=== PATIENT | male | born 1950 | race Two or more races ===

== ENCOUNTER 2017-04-23 02:55 | Inpatient (IN) | payer MEDICAID, MEDICARE ==
[~2017-04-23] VITALS: Ht 172.7 cm; Wt 65.8 kg
[2017-04-23] VITALS (22 sets, daily range): BP systolic 74–122; BP diastolic 44–78
[~2017-04-23 02:55] MED LIST: ASPI-1169 PO; CARV6.252 PO; CLON0.1T14 PO; FURO40TA5 PO; FURO80TA3 PO; ISOS60TA PO; LISI-607 PO; LISI10TA5 PO; MECL-118 PO; NITR0.4T SL; TAMS-12 PO; ZOLP5TAB8 PO
[2017-04-23] MEDS ORDERED: FUROSEMIDE 20 MG/2 ML VIAL ONE (03:07)
[2017-04-23] MEDS ORDERED: FUROSEMIDE 40 MG/4 ML VIAL ONE (03:07)
[2017-04-23] MEDS ORDERED: MORPHINE SULFATE INJ 4 MG/ML DISP.SYRIN ONE (03:08)
[2017-04-23] MEDS ORDERED: ASPIRIN EC 325 MG TABLET.DR PO ONE (03:08)
[2017-04-23] MEDS ORDERED: NITROGLYCERIN PACKET 1 GM PACKET ONE (03:08)
[2017-04-23 03:29] LABS: BASOPHILS % (AUTO) 0.2 % (0.0-2.0); HEMATOCRIT 37 % (39-51); HEMOGLOBIN 11.5 g/dL (13.5-17.5); LYMPHOCYTES # (AUTO) 2.1 /CMM (0.8-4.8); LYMPHOCYTES % (AUTO) 12.8 % (20.0-44.0); MEAN CORPUSCULAR HEMOGLOBIN 23 PG (26.0-33.0); MEAN CORPUSCULAR HGB CONC 31 g/dl (31.0-36.0); MEAN CORPUSCULAR VOLUME 75 fL (80-96); MONOCYTES # (AUTO) 0.2 /CMM (0.1-1.30); MONOCYTES % (AUTO) 1.3 % (2.0-12.0); NEUTROPHILS % (AUTO) 85.7 % (43.0-81.0); PLATELET COUNT (AUTO) 259 /CMM (150-450); RDW COEFFICIENT OF VARIATION 17.5 (11.5-15.0); RED BLOOD CELL COUNT(AUTO) 4.93 MIL/uL (4.5-6.0); WHITE BLOOD COUNT (AUTO) 16.4 K/uL (4.3-11.0)
[2017-04-23] MEDS ORDERED: ONDANSETRON HCL/PF 4 MG/2 ML VIAL ONE (03:29)
[2017-04-23] MEDS ORDERED: MORPHINE SULFATE INJ 2 MG/ML DISP.SYRIN IV ONE (03:30)
[2017-04-23] MEDS ORDERED: ONDANSETRON HCL/PF 4 MG/2 ML VIAL IVP ONE (03:30)
[2017-04-23] MEDS ORDERED: ASPIRIN 325 MG TABLET PO ONE (03:30)
[2017-04-23] MEDS ORDERED: NITROGLYCERIN PACKET 1 GM PACKET TD ONE (03:30)
[2017-04-23] MEDS ORDERED: FUROSEMIDE 40 MG/4 ML VIAL IV ONE (03:30)
[2017-04-23 03:43] LABS: CALCIUM, SERUM 8.2 mg/dL (8.5-10.1); CREATININE 2.5 mg/dL (0.6-1.3); POTASSIUM 4.1 mmol/L (3.5-5.1)
[2017-04-23 03:45] LABS: INR 1.11 (0.87-1.13)
[2017-04-23 03:48] LABS: TROPONIN I 0.175 ng/mL (0.00-0.056)
[2017-04-23 03:48] LABS: ABG BASE EXCESS -5.8 mmol/L; ABG OXYGEN SATURATION 86.2 % (92.0-98.5); ABG PCO2 42.8 mmHg (35.0-45.0); ABG PH 7.297 (7.350-7.450); ABG PO2 59.8 mmHg (75.0-100.0); COHb 0.3 % (0.5-1.5); MetHb 0.5 % (0.0-1.5); O2Hb 85.5 % (94.0-97.0); SITE, ABG Right Radial; VENT MODE, BG NRB
[2017-04-23 03:56] LABS: ALBUMIN 3.4 g/dL (3.4-5.0); BILIRUBIN,DIRECT 0.3 mg/dL (0.0-0.2); BILIRUBIN,TOTAL 1.3 mg/dL (0.2-1.0); TOTAL PROTEIN, SERUM 7.6 g/dL (6.4-8.2)
[2017-04-23] MEDS ORDERED: MAGNESIUM HYDROXIDE 30 ML UDC PO PRN (05:30)
[2017-04-23] MEDS ORDERED: LEVALBUTEROL HCL NEB 1.25 MG/0.5 ML VIAL.NEB NEB SCH (05:30)
[2017-04-23] MEDS ORDERED: HYDROCODONE/APAP 5/325MG 1 EACH TABLET PO PRN (05:30)
[2017-04-23] MEDS ORDERED: MAG HYDROX/AL HYDROX/SIMETH 30 ML UDC PO PRN (05:30)
[2017-04-23] MEDS ORDERED: Z GUARD REMEDY 2 OZ OINT TP PRN (05:30)
[2017-04-23] MEDS ORDERED: ONDANSETRON HCL/PF 4 MG/2 ML VIAL IVP PRN (05:30)
[2017-04-23] MEDS ORDERED: ZOLPIDEM TARTRATE 5 MG TABLET PO PRN (05:30)
[2017-04-23] MEDS ORDERED: hydrALAZINE HCL 25 MG TABLET PO PRN (05:30)
[2017-04-23] MEDS ORDERED: FUROSEMIDE 40 MG/4 ML VIAL IV SCH (06:00)
[2017-04-23 06:18] LABS: TROPONIN I 0.593 ng/mL (0.00-0.056)
[2017-04-23 06:21] LABS: THYROID STIMULATING HORMONE 2.093 uIU/mL (0.358-3.74)
[2017-04-23] MEDS ORDERED: OSELTAMIVIR PHOSPHATE 75 MG CAPSULE PO ONE (09:00)
[2017-04-23] MEDS: ISOSORBIDE MONONITRATE (30MG) 30 MG TAB.SR.24H PO SCH (09:00)
[2017-04-23] MEDS: CLONIDINE HCL 0.1 MG TABLET PO SCH ×2 (09:00→16:50)
[2017-04-23] MEDS: CARVEDILOL 6.25 MG TABLET PO SCH ×2 (09:00→16:51)
[2017-04-23] MEDS: ALBUTEROL FS 2.5 MG/3 ML VIAL.NEB NEB SCH ×4 (09:26→19:03)
[2017-04-23] MEDS ORDERED: NITROGLYCERIN 0.4 MG/TAB BOTTLE SL PRN (09:30)
[2017-04-23] MEDS ORDERED: MECLIZINE HCL 25 MG TABLET PO PRN (09:30)
[2017-04-23] MEDS: PANTOPRAZOLE 40 MG TABLET.DR PO SCH (10:19)
[2017-04-23] MEDS: ASPIRIN 81 MG TAB.CHEW PO SCH (10:19)
[2017-04-23] MEDS: ACETAMINOPHEN 325 MG TABLET PO PRN (10:19)
[2017-04-23] MEDS: AZITHROMYCIN 250 MG TABLET PO SCH (10:19)
[2017-04-23] MEDS: FUROSEMIDE 40 MG/4 ML VIAL IV SCH ×2 (10:20→19:15)
[2017-04-23] MEDS ORDERED: NOREPINEPHRINE 8 MG in IV D5W 500 ML IV PRN (11:30)
[2017-04-23] MEDS: CEFTRIAXONE 1 G in IV D5W 50 ML IV SCH (12:07)
[2017-04-23] MEDS ORDERED: HEPARIN SODIUM, PORCINE 5000 UNITS/1 ML VIAL IV ONE (15:30)
[2017-04-23] MEDS: HEPARIN INFUSION/D5W 500 ML IV PRN (16:04)
[2017-04-23] MEDS: OSELTAMIVIR PHOSPHATE 75 MG CAPSULE PO SCH (17:22)
[2017-04-23] MEDS: TAMSULOSIN 0.4 MG CAP.SR.24H PO SCH (22:39)
[2017-04-24] VITALS (56 sets, daily range): BP systolic 70–144; BP diastolic 41–96
[2017-04-24] MEDS: FUROSEMIDE 40 MG/4 ML VIAL IV SCH ×5 (00:30→23:44)
[2017-04-24] MEDS: HEPARIN INFUSION/D5W 500 ML IV PRN ×2 (00:43→17:53)
[2017-04-24] MEDS: MORPHINE SULFATE INJ 4 MG/ML DISP.SYRIN IV PRN ×2 (00:45→21:54)
[2017-04-24 06:06] LABS: BASOPHILS % (AUTO) 0.4 % (0.0-2.0); EOSINOPHILS % (AUTO) 0.1 % (0.0-6.0); HEMATOCRIT 31 % (39-51); HEMOGLOBIN 10.1 g/dL (13.5-17.5); LYMPHOCYTES # (AUTO) 0.5 /CMM (0.8-4.8); LYMPHOCYTES % (AUTO) 6.6 % (20.0-44.0); MEAN CORPUSCULAR HEMOGLOBIN 24 PG (26.0-33.0); MEAN CORPUSCULAR HGB CONC 33 g/dl (31.0-36.0); MEAN CORPUSCULAR VOLUME 72 fL (80-96); MONOCYTES # (AUTO) 0.3 /CMM (0.1-1.30); MONOCYTES % (AUTO) 3.3 % (2.0-12.0); NEUTROPHILS # (AUTO) 6.9 /CMM (1.8-8.9); NEUTROPHILS % (AUTO) 89.6 % (43.0-81.0); PLATELET COUNT (AUTO) 136 /CMM (150-450); RED BLOOD CELL COUNT(AUTO) 4.25 MIL/uL (4.5-6.0); WHITE BLOOD COUNT (AUTO) 7.7 K/uL (4.3-11.0)
[2017-04-24 06:32] LABS: CALCIUM, SERUM 7.4 mg/dL (8.5-10.1); CREATININE 2.4 mg/dL (0.6-1.3); MAGNESIUM 1.8 mg/dL (1.8-2.4); PHOSPHORUS 3.8 mg/dL (2.5-4.9)
[2017-04-24] MEDS: ALBUTEROL FS 2.5 MG/3 ML VIAL.NEB NEB SCH ×4 (07:52→19:23)
[2017-04-24] MEDS ORDERED: ENOXAPARIN SODIUM 30 MG/0.3 ML DISP.SYRIN SQ SCH (09:00)
[2017-04-24] MEDS: OSELTAMIVIR PHOSPHATE 75 MG CAPSULE PO SCH ×2 (09:05→17:47)
[2017-04-24] MEDS: AZITHROMYCIN 250 MG TABLET PO SCH (09:05)
[2017-04-24] MEDS: POTASSIUM CHLORIDE 20 MEQ TAB.PRT.SR PO SCH ×3 (09:05→11:18)
[2017-04-24] MEDS: ASPIRIN 81 MG TAB.CHEW PO SCH (09:05)
[2017-04-24] MEDS: PANTOPRAZOLE 40 MG TABLET.DR PO SCH (09:05)
[2017-04-24] MEDS: CEFTRIAXONE 1 G in IV D5W 50 ML IV SCH (09:06)
[2017-04-24] MEDS: CARVEDILOL 6.25 MG TABLET PO SCH ×2 (09:11→17:00)
[2017-04-24] MEDS: ISOSORBIDE MONONITRATE (30MG) 30 MG TAB.SR.24H PO SCH (09:11)
[2017-04-24] MEDS: CLONIDINE HCL 0.1 MG TABLET PO SCH ×2 (09:12→17:00)
[2017-04-24 09:34] LABS: LYMPHOCYTES % (MANUAL) 6 % (16-48); MONOCYTES % (MANUAL) 3 % (0-11.0); NEUTROPHILS % (MANUAL) 91 (42-76)
[2017-04-24] MEDS: ACETAMINOPHEN 325 MG TABLET PO PRN (10:20)
[2017-04-24 11:37] LABS: ABG BASE EXCESS 4.3 mmol/L; ABG OXYGEN SATURATION 96.1 % (92.0-98.5); ABG PCO2 42.4 mmHg (35.0-45.0); ABG PH 7.449 (7.350-7.450); ABG PO2 92.3 mmHg (75.0-100.0); AaDO2 144.1 mmHg; COHb 0.3 % (0.5-1.5); MetHb 0.2 % (0.0-1.5); O2Hb 95.6 % (94.0-97.0); SITE, ABG Right Radial; VENT MODE, BG NC 5L
[2017-04-24] MEDS: DOBUTamine 500 MG in IV D5W 210 ML IV PRN (15:11)
[2017-04-24] MEDS: LACTOBACILLUS RHAMNOSUS GG 1 EACH CAP.SPRINK PO SCH (17:47)
[2017-04-24] MEDS: TAMSULOSIN 0.4 MG CAP.SR.24H PO SCH (21:54)
[2017-04-25] VITALS (53 sets, daily range): BP systolic 83–135; BP diastolic 36–97
[2017-04-25 01:43] LABS: CALCIUM, SERUM 7.2 mg/dL (8.5-10.1); CREATININE 2.3 mg/dL (0.6-1.3); POTASSIUM 3.2 mmol/L (3.5-5.1)
[2017-04-25 01:47] LABS: PHOSPHORUS 3.8 mg/dL (2.5-4.9)
[2017-04-25 02:01] LABS: TROPONIN I 0.408 ng/mL (0.00-0.056)
[2017-04-25] MEDS ORDERED: POTASSIUM CHLORIDE 20 MEQ TAB.PRT.SR PO ONE ×2 (03:10→03:30)
[2017-04-25] MEDS: DOBUTamine 500 MG in IV D5W 210 ML IV PRN (04:48)
[2017-04-25 05:23] LABS: EOSINOPHILS % (AUTO) 0.4 % (0.0-6.0); HEMATOCRIT 30 % (39-51); HEMOGLOBIN 9.9 g/dL (13.5-17.5); LYMPHOCYTES # (AUTO) 0.3 /CMM (0.8-4.8); LYMPHOCYTES % (AUTO) 9.2 % (20.0-44.0); MEAN CORPUSCULAR HEMOGLOBIN 24 PG (26.0-33.0); MEAN CORPUSCULAR HGB CONC 33 g/dl (31.0-36.0); MEAN CORPUSCULAR VOLUME 72 fL (80-96); MONOCYTES # (AUTO) 0.3 /CMM (0.1-1.30); NEUTROPHILS # (AUTO) 2.9 /CMM (1.8-8.9); NEUTROPHILS % (AUTO) 82.4 % (43.0-81.0); PLATELET COUNT (AUTO) 147 /CMM (150-450); RDW COEFFICIENT OF VARIATION 17.8 (11.5-15.0); RED BLOOD CELL COUNT(AUTO) 4.17 MIL/uL (4.5-6.0); WHITE BLOOD COUNT (AUTO) 3.5 K/uL (4.3-11.0)
[2017-04-25 05:31] LABS: TROPONIN I 0.387 ng/mL (0.00-0.056)
[2017-04-25 05:38] LABS: ALBUMIN 2.9 g/dL (3.4-5.0); BILIRUBIN,TOTAL 1.1 mg/dL (0.2-1.0); CALCIUM, SERUM 7.7 mg/dL (8.5-10.1); CREATININE 2.2 mg/dL (0.6-1.3); MAGNESIUM 1.9 mg/dL (1.8-2.4); PHOSPHORUS 3.4 mg/dL (2.5-4.9); POTASSIUM 3.5 mmol/L (3.5-5.1); TOTAL PROTEIN, SERUM 6.3 g/dL (6.4-8.2)
[2017-04-25] MEDS: FUROSEMIDE 40 MG/4 ML VIAL IV SCH (06:15)
[2017-04-25] MEDS: ACETAMINOPHEN 325 MG TABLET PO PRN (07:51)
[2017-04-25] MEDS: PANTOPRAZOLE 40 MG TABLET.DR PO SCH (07:52)
[2017-04-25] MEDS: LACTOBACILLUS RHAMNOSUS GG 1 EACH CAP.SPRINK PO SCH ×2 (08:00→16:51)
[2017-04-25] MEDS: ASPIRIN 81 MG TAB.CHEW PO SCH (08:00)
[2017-04-25] MEDS: OSELTAMIVIR PHOSPHATE 75 MG CAPSULE PO SCH ×2 (08:00→16:51)
[2017-04-25] MEDS: ALBUTEROL FS 2.5 MG/3 ML VIAL.NEB NEB SCH ×4 (08:06→19:43)
[2017-04-25] MEDS: CEFTRIAXONE 1 G in IV D5W 50 ML IV SCH (09:22)
[2017-04-25] MEDS: AZITHROMYCIN 250 MG TABLET PO SCH (09:22)
[2017-04-25] MEDS: TAMSULOSIN 0.4 MG CAP.SR.24H PO SCH (21:17)
[2017-04-25] MEDS: MORPHINE SULFATE INJ 4 MG/ML DISP.SYRIN IV PRN (21:18)
[2017-04-25] MEDS: HEPARIN SODIUM, PORCINE 5000 UNITS/1 ML VIAL SQ SCH (21:19)
[2017-04-26] VITALS (18 sets, daily range): BP systolic 106–128; BP diastolic 61–83
[2017-04-26] MEDS: MORPHINE SULFATE INJ 4 MG/ML DISP.SYRIN IV PRN ×2 (01:33→21:07)
[2017-04-26] MEDS: IV NS 0.9% 100 ML IV PRN ×2 (04:21→17:47)
[2017-04-26] MEDS: ALBUTEROL FS 2.5 MG/3 ML VIAL.NEB NEB SCH ×3 (07:12→19:26)
[2017-04-26] MEDS ORDERED: FUROSEMIDE 40 MG/4 ML VIAL IV SCH (08:00)
[2017-04-26] MEDS ORDERED: POTASSIUM CHLORIDE 20 MEQ TAB.PRT.SR PO SCH (08:00)
[2017-04-26] MEDS: LACTOBACILLUS RHAMNOSUS GG 1 EACH CAP.SPRINK PO SCH ×2 (08:52→16:27)
[2017-04-26] MEDS: OSELTAMIVIR PHOSPHATE 75 MG CAPSULE PO SCH ×2 (08:52→16:27)
[2017-04-26] MEDS: PANTOPRAZOLE 40 MG TABLET.DR PO SCH (08:52)
[2017-04-26] MEDS: ASPIRIN 81 MG TAB.CHEW PO SCH (08:52)
[2017-04-26] MEDS: HEPARIN SODIUM, PORCINE 5000 UNITS/1 ML VIAL SQ SCH ×2 (08:55→20:58)
[2017-04-26] MEDS: AZITHROMYCIN 250 MG TABLET PO SCH (09:01)
[2017-04-26] MEDS: CEFTRIAXONE 1 G in IV D5W 50 ML IV SCH (09:05)
[2017-04-26 09:30] LABS: BILIRUBIN,TOTAL 0.7 mg/dL (0.2-1.0); CREATININE 2.1 mg/dL (0.6-1.3); MAGNESIUM 2.1 mg/dL (1.8-2.4); PHOSPHORUS 2.9 mg/dL (2.5-4.9); POTASSIUM 3.4 mmol/L (3.5-5.1); TOTAL PROTEIN, SERUM 6.7 g/dL (6.4-8.2)
[2017-04-26 09:58] LABS: BASOPHILS % (AUTO) 0.5 % (0.0-2.0); EOSINOPHILS % (AUTO) 1.9 % (0.0-6.0); HEMATOCRIT 32 % (39-51); HEMOGLOBIN 10.2 g/dL (13.5-17.5); LYMPHOCYTES # (AUTO) 0.5 /CMM (0.8-4.8); LYMPHOCYTES % (AUTO) 18.6 % (20.0-44.0); MEAN CORPUSCULAR HEMOGLOBIN 23 PG (26.0-33.0); MEAN CORPUSCULAR HGB CONC 32 g/dl (31.0-36.0); MEAN CORPUSCULAR VOLUME 72 fL (80-96); MONOCYTES # (AUTO) 0.4 /CMM (0.1-1.30); MONOCYTES % (AUTO) 16.5 % (2.0-12.0); NEUTROPHILS # (AUTO) 1.5 /CMM (1.8-8.9); NEUTROPHILS % (AUTO) 62.5 % (43.0-81.0); PLATELET COUNT (AUTO) 148 /CMM (150-450); RDW COEFFICIENT OF VARIATION 16.5 (11.5-15.0); RED BLOOD CELL COUNT(AUTO) 4.48 MIL/uL (4.5-6.0); WHITE BLOOD COUNT (AUTO) 2.4 K/uL (4.3-11.0)
[2017-04-26 11:53] LABS: BAND % (MANUAL) 2 % (0.0-5.0); EOSINOPHILS % (MANUAL) 3 % (0-4); LYMPHOCYTES % (MANUAL) 17 % (16-48); MONOCYTES % (MANUAL) 5 % (0-11.0); NEUTROPHILS % (MANUAL) 73 (42-76)
[2017-04-26] MEDS: TAMSULOSIN 0.4 MG CAP.SR.24H PO SCH (20:58)
[2017-04-27] VITALS: BP 132/64
[2017-04-27 01:30] VITALS: BP 132/64
[2017-04-27 04:00] VITALS: BP 124/74
[2017-04-27] MEDS: PANTOPRAZOLE 40 MG TABLET.DR PO SCH (07:05)
[2017-04-27] MEDS: ALBUTEROL FS 2.5 MG/3 ML VIAL.NEB NEB SCH (07:35)
[2017-04-27 07:48] LABS: BASOPHILS % (AUTO) 0.1 % (0.0-2.0); EOSINOPHILS # (AUTO) 0.1 /CMM (0.0-0.7); EOSINOPHILS % (AUTO) 3.3 % (0.0-6.0); HEMATOCRIT 33 % (39-51); HEMOGLOBIN 10.9 g/dL (13.5-17.5); LYMPHOCYTES # (AUTO) 0.7 /CMM (0.8-4.8); LYMPHOCYTES % (AUTO) 21.8 % (20.0-44.0); MEAN CORPUSCULAR HEMOGLOBIN 24 PG (26.0-33.0); MEAN CORPUSCULAR HGB CONC 33 g/dl (31.0-36.0); MEAN CORPUSCULAR VOLUME 72 fL (80-96); MONOCYTES # (AUTO) 0.5 /CMM (0.1-1.30); MONOCYTES % (AUTO) 16.6 % (2.0-12.0); NEUTROPHILS # (AUTO) 1.8 /CMM (1.8-8.9); NEUTROPHILS % (AUTO) 58.2 % (43.0-81.0); PLATELET COUNT (AUTO) 156 /CMM (150-450); RDW COEFFICIENT OF VARIATION 17.4 (11.5-15.0); RED BLOOD CELL COUNT(AUTO) 4.55 MIL/uL (4.5-6.0); WHITE BLOOD COUNT (AUTO) 3.1 K/uL (4.3-11.0)
[2017-04-27 08:00] VITALS: BP 130/72
[2017-04-27 08:02] LABS: BILIRUBIN,TOTAL 0.7 mg/dL (0.2-1.0); CALCIUM, SERUM 8.2 mg/dL (8.5-10.1); CREATININE 1.8 mg/dL (0.6-1.3); MAGNESIUM 2.2 mg/dL (1.8-2.4); PHOSPHORUS 2.5 mg/dL (2.5-4.9); POTASSIUM 3.9 mmol/L (3.5-5.1); TOTAL PROTEIN, SERUM 6.8 g/dL (6.4-8.2)
[2017-04-27] MEDS: HEPARIN SODIUM, PORCINE 5000 UNITS/1 ML VIAL SQ SCH (08:46)
[2017-04-27] MEDS: LACTOBACILLUS RHAMNOSUS GG 1 EACH CAP.SPRINK PO SCH (08:47)
[2017-04-27] MEDS: OSELTAMIVIR PHOSPHATE 75 MG CAPSULE PO SCH (08:47)
[2017-04-27] MEDS: ASPIRIN 81 MG TAB.CHEW PO SCH (08:47)
[2017-04-27] MEDS ORDERED: FUROSEMIDE 80 MG TABLET PO SCH (09:00)
[2017-04-27] MEDS: AZITHROMYCIN 250 MG TABLET PO SCH (09:00)
[2017-04-27] MEDS ORDERED: POTASSIUM CHLORIDE 20 MEQ TAB.PRT.SR PO SCH (09:00)
[2017-04-27] MEDS: CEFTRIAXONE 1 G in IV D5W 50 ML IV SCH (10:00)
[2017-04-27 11:16] LABS: BAND % (MANUAL) 1 % (0.0-5.0); EOSINOPHILS % (MANUAL) 1 % (0-4); LYMPHOCYTES % (MANUAL) 20 % (16-48); MONOCYTES % (MANUAL) 19 % (0-11.0); NEUTROPHILS % (MANUAL) 59 (42-76)
== END 2017-04-27 11:45 | disposition home or self-care (01) | DRG 720 ==
LOC: ER 02:59 → ICU 08:32 → TELE 04-26 13:40 → MED 04-27 09:21
PROVIDERS: ADMIT Internal Medicine; ATTEND Internal Medicine
PROC: 05H533Z Insertion of Infusion Device into Right Subclavian Vein, Percutaneous Approach (ICD-10-PCS; principal; 2017-04-23)
DX: A41.9 Sepsis, unspecified organism (principal); I21.A1 Myocardial infarction type 2; N17.0 Acute kidney failure with tubular necrosis; J96.21 Acute and chronic respiratory failure with hypoxia; I50.23 Acute on chronic systolic (congestive) heart failure; J10.00 Influenza due to other identified influenza virus with unspecified type of pneumonia; I95.9 Hypotension, unspecified; D61.818 Other pancytopenia; E87.2 Acidosis; I42.9 Cardiomyopathy, unspecified; I13.0 Hypertensive heart and chronic kidney disease with heart failure and stage 1 through stage 4 chronic kidney disease, or unspecified chronic kidney disease; E44.0 Moderate protein-calorie malnutrition; D63.8 Anemia in other chronic diseases classified elsewhere; E78.5 Hyperlipidemia, unspecified; I25.10 Atherosclerotic heart disease of native coronary artery without angina pectoris; N18.9 Chronic kidney disease, unspecified; Z87.891 Personal history of nicotine dependence; Z95.1 Presence of aortocoronary bypass graft; K21.9 Gastro-esophageal reflux disease without esophagitis; N40.0 Benign prostatic hyperplasia without lower urinary tract symptoms; E87.6 Hypokalemia; Z68.22 Body mass index [BMI] 22.0-22.9, adult; Z95.810 Presence of automatic (implantable) cardiac defibrillator; J18.9 Pneumonia, unspecified organism
CPT/HCPCS: 36415; 36600; 71045-TC; 76770-TC; 80048-TC; 80053-TC; 80061-TC; 80076-TC; 82803-TC; 83605-TC; 83735-TC; 83880; 84100-TC; 84443-TC; 84484-TC; 85025-TC; 85730-TC; 87040-TC; 87081-TC; 87400; 93307-TC; 94799-TC; A4606; C1751; J0696; J1250; J1644; J1940; J2270; J2405; J7030; J7060; J8597

== ENCOUNTER 2018-10-27 13:03 | Inpatient (IN) | payer MEDICARE, OTHER ==
[~2018-10-27] VITALS: Ht 160 cm; Wt 66.2 kg
[~2018-10-27 13:03] MED LIST changes: -FURO80TA3 PO; -LISI-607 PO; -LISI10TA5 PO
--- NOTE | 2018-10-27 13:05 | NUR ---
PT BIBRA FROM HOME FOR WORSENING COUGH; PT AAOX4,-SOB, PT ON MONITOR, VSS, NAD NOTED, PENDING ER PROVIDER WALDOAL
[2018-10-27] MEDS ORDERED: ALBUTEROL FS 2.5 MG/3 ML VIAL.NEB NEB ONE (13:30)
[2018-10-27] MEDS ORDERED: IV NS 0.9% 500 ML BAG IV ONE (13:30)
[2018-10-27] MEDS ORDERED: IPRATROPIUM NEB FS 0.5 MG/2.5 ML AMPUL.NEB NEB ONE (13:30)
[2018-10-27 13:35] LABS: BASOPHILS # (AUTO) 0.1 /CMM (0.0-0.2); BASOPHILS % (AUTO) 0.8 % (0.0-2.0); EOSINOPHILS % (AUTO) 1.3 % (0.0-6.0); HEMATOCRIT 38 % (39-51); HEMOGLOBIN 12.4 g/dL (13.5-17.5); LYMPHOCYTES # (AUTO) 0.9 /CMM (0.8-4.8); LYMPHOCYTES % (AUTO) 6.9 % (20.0-44.0); MEAN CORPUSCULAR HGB CONC 32 g/dl (31.0-36.0); MEAN CORPUSCULAR VOLUME 76 fL (80-96); MONOCYTES % (AUTO) 7.7 % (2.0-12.0); NEUTROPHILS # (AUTO) 10.8 /CMM (1.8-8.9); NEUTROPHILS % (AUTO) 83.3 % (43.0-81.0); PLATELET COUNT (AUTO) 305 /CMM (150-450); RED BLOOD CELL COUNT(AUTO) 5.02 MIL/uL (4.5-6.0); WHITE BLOOD COUNT (AUTO) 12.9 K/uL (4.3-11.0)
[2018-10-27 13:45] LABS: CARBON DIOXIDE 30 mmol/L (21-32); CHLORIDE 105 mmol/L (98-107); CREATININE 2.1 mg/dL (0.6-1.3); GLUCOSE 122 mg/dL (74-106); POTASSIUM 5.2 mmol/L (3.5-5.1); SODIUM SERUM 142 mmol/L (136-145); UREA NITROGEN, BLOOD 19 mg/dL (7-18)
[2018-10-27] MEDS ORDERED: ALBUTEROL FS 2.5 MG/3 ML VIAL.NEB ONE (13:53)
[2018-10-27] MEDS ORDERED: IPRATROPIUM NEB FS 0.5 MG/2.5 ML AMPUL.NEB ONE (13:53)
[2018-10-27 13:58] LABS: ALANINE AMINOTRANSFERASE 25 U/L (12-78); ALBUMIN 3.5 g/dL (3.4-5.0); ALKALINE PHOSPHATASE 87 U/L (46-116); ASPARTATE AMINOTRANSFERASE 15 U/L (15-37); BILIRUBIN,DIRECT 0.3 mg/dL (0.0-0.2); BILIRUBIN,TOTAL 1.2 mg/dL (0.2-1.0); TOTAL PROTEIN, SERUM 8.1 g/dL (6.4-8.2)
[2018-10-27] MEDS ORDERED: HYDROCODONE BIT/ACETAMINOPHEN 3.33 MG/5 ML UDC PO ONE (14:00)
[2018-10-27] MEDS ORDERED: HYDROCODONE BIT/HOMATROPINE 5 ML UDC PO ONE (14:30)
[2018-10-27] MEDS ORDERED: FLUT1BLS6 INH (14:43)
[2018-10-27] MEDS ORDERED: DUTA0.5C15 PO (14:43)
[2018-10-27 14:48] LABS: BILIRUBIN,URINE SMALL (NEGATIVE); BLOOD, URINE Trace-intact Ery/uL (NEGATIVE); COLOR,URINE Yellow (YELLOW); KETONES,URINE Trace (NEGATIVE); LEUKOCYTE ESTERASE ,URINE Negative (NEGATIVE); NITRITE, URINE Negative (NEGATIVE); PH,URINE 5.5 (5.0-8.0); PROTEIN,URINE 100 mg/dl (NEGATIVE); UGLUCOSE Negative (NEGATIVE)
[2018-10-27] MEDS ORDERED: BENZONATATE 100 MG CAPSULE PO STA (15:07)
[2018-10-27] MEDS ORDERED: FUROSEMIDE 40 MG/4 ML VIAL ONE (15:19)
[2018-10-27 15:21] LABS: APPEARANCE,URINE HAZY (CLEAR)
[2018-10-27 15:22] LABS: BACTERIA,URINE Rare /HPF (None Seen); SQUAMOUS EPITHELIAL CELL,UR Few /HPF (None Seen)
[2018-10-27] MEDS ORDERED: FUROSEMIDE 40 MG/4 ML VIAL IV ONE (15:30)
[2018-10-27] MEDS ORDERED: CEFTRIAXONE 1GM BAG (ER ONLY) 1 GM/50 ML PIGGYBACK IV ONE (15:30)
[2018-10-27] MEDS ORDERED: CEFTRIAXONE 2 G in IV D5W 100 ML IV ONE (15:30)
--- NOTE | 2018-10-27 16:10 | NUR ---
CHANGED ROOM TO 323
[2018-10-27] MEDS ORDERED: MAGNESIUM HYDROXIDE 30 ML UDC PO PRN (16:30)
[2018-10-27] MEDS ORDERED: Z GUARD REMEDY 2 OZ OINT TP PRN (16:30)
[2018-10-27] MEDS ORDERED: NITROGLYCERIN 0.4 MG/TAB BOTTLE SL PRN (16:30)
[2018-10-27] MEDS ORDERED: MAG HYDROX/AL HYDROX/SIMETH 30 ML UDC PO PRN (16:30)
[2018-10-27] MEDS ORDERED: ONDANSETRON HCL/PF 4 MG/2 ML VIAL IVP PRN (16:30)
[2018-10-27] MEDS ORDERED: ACETAMINOPHEN 325 MG TABLET PO PRN (16:30)
[2018-10-27] MEDS ORDERED: TRELEGY ELLIPTA INH PRN (16:30)
--- NOTE | 2018-10-27 16:50 | NUR ---
CALLED FOR BED, TURNED IN MOVE SHEET, GOING TO BED 323-1
[2018-10-27 17:00] VITALS: BP 125/78
[2018-10-27] MEDS ORDERED: MECLIZINE HCL 12.5 MG TABLET PO PRN (17:00)
--- NOTE | 2018-10-27 17:05 | NUR ---
REPORT GIVEN TO MARCELO SWEET FOR JEAN PIERRE PT WILL BE TRANSPORTED TO 3RD FLOOR VIA [facility]S PROTO[facility]
[2018-10-27] MEDS: CLONIDINE HCL 0.1 MG TABLET PO SCH (17:35)
[2018-10-27] MEDS: CARVEDILOL 6.25 MG TABLET PO SCH (17:35)
[2018-10-27] MEDS: FUROSEMIDE 40 MG TABLET PO SCH (17:35)
[2018-10-27] MEDS: AZITHROMYCIN 500 MG in IV D5W 250 ML IV SCH (17:36)
--- NOTE | 2018-10-27 17:42 | NUR ---
Tele/RN - Admission Received patient from ER, alert and oriented x 4, denies chest pain, palpitation but c/o shortness of breath with exertion, stable on room air, afebrile, tele shows v-paced 100% underlying SR. Admitted for CHF Excerbation/Chest pain under the care of hospitalist Carlos Chang NP. Patient oriented to room, all belongings accounted for. Saline lock on the RAC is patent, intact, flushing well. Skin assessment done, no skin breakdown, refused photo to be taken. Fall and aspiration precautions initiated. Discussed plan of care with patient and family at bedside and in agreement. Admission orders noted and carried out. Will endorse to night nurse for continuity of care.
--- NOTE | 2018-10-27 18:36 | NUR ---
INITIAL ECHO FINDINGS SHOWED EF 20-25% W/ MILD PULM HTN 41mmHg. ADVISED ATTENDING RN AND DR LOU OF PRELIMINARY RESULTS.
[2018-10-27 19:46] VITALS: BP 98/61
[2018-10-27] MEDS: HYDROCODONE/APAP 5/325MG 1 EACH TABLET PO PRN (20:37)
[2018-10-27] MEDS ORDERED: TEMAZEPAM 15 MG CAPSULE PO PRN (21:00)
[2018-10-27] MEDS: DUTASTERIDE (0.5 MG) 0.5 MG CAPSULE PO SCH (21:43)
[2018-10-28 00:32] VITALS: BP 100/63
[2018-10-28 04:14] VITALS: BP 103/62
--- NOTE | 2018-10-28 06:25 | NUR ---
CENTRAL STERILIZATION TECHNICIAN NOTES AWAKE & RESPONSIVE. NOT IN ANY DISTRESS. NO SOB NOTED. DENIES ANY PAIN OR DISCOMFORT AT THIS TIME. ON TELE V-PACING @ 85 WITH IV-HL PATENT & INTACT. MONITORED ACCORDINGLY. CALL LIGHT WITHIN REACH. BED IN LOWEST POSITION. SR UP X 3 WITH BED ALARM ON FOR SAFETY. WILL ENDORSE TO NEXT SHIFT.
[2018-10-28 06:26] LABS: CALCIUM, SERUM 8.4 mg/dL (8.5-10.1); POTASSIUM 3.7 mmol/L (3.5-5.1)
[2018-10-28 06:32] LABS: BILIRUBIN,DIRECT 0.2 mg/dL (0.0-0.2); BILIRUBIN,TOTAL 0.8 mg/dL (0.2-1.0); MAGNESIUM 2.1 mg/dL (1.8-2.4); PHOSPHORUS 3.8 mg/dL (2.5-4.9); TOTAL PROTEIN, SERUM 7.1 g/dL (6.4-8.2)
[2018-10-28 06:44] LABS: BASOPHILS # (AUTO) 0.1 /CMM (0.0-0.2); BASOPHILS % (AUTO) 0.7 % (0.0-2.0); EOSINOPHILS % (AUTO) 2.6 % (0.0-6.0); HEMATOCRIT 33 % (39-51); LYMPHOCYTES # (AUTO) 0.7 /CMM (0.8-4.8); LYMPHOCYTES % (AUTO) 7.9 % (20.0-44.0); MEAN CORPUSCULAR HGB CONC 33 g/dl (31.0-36.0); MEAN CORPUSCULAR VOLUME 76 fL (80-96); MONOCYTES # (AUTO) 0.9 /CMM (0.1-1.30); MONOCYTES % (AUTO) 9.9 % (2.0-12.0); NEUTROPHILS # (AUTO) 6.8 /CMM (1.8-8.9); NEUTROPHILS % (AUTO) 78.9 % (43.0-81.0); PLATELET COUNT (AUTO) 243 /CMM (150-450); RED BLOOD CELL COUNT(AUTO) 4.39 MIL/uL (4.5-6.0); THYROID STIMULATING HORMONE 0.704 uIU/mL (0.358-3.74); WHITE BLOOD COUNT (AUTO) 8.6 K/uL (4.3-11.0)
--- NOTE | 2018-10-28 08:00 | NUR ---
SENIOR RESEARCH PROJECT MANAGER AM NOTES AWAKE & RESPONSIVE. NOT IN ANY DISTRESS. NO SOB NOTED. DENIES ANY PAIN OR DISCOMFORT AT THIS TIME. ON TELE V-PACING @ 85 WITH IV-HL PATENT & INTACT. MONITORED ACCORDINGLY. CALL LIGHT WITHIN REACH. BED IN LOWEST POSITION. ON STRICT I&O.SR UP X 3 WITH BED ALARM ON FOR SAFETY.
[2018-10-28 08:10] VITALS: BP 122/78
[2018-10-28] MEDS: ASPIRIN 81 MG TAB.CHEW PO SCH (09:12)
[2018-10-28] MEDS: CARVEDILOL 6.25 MG TABLET PO SCH ×2 (09:12→17:00)
[2018-10-28] MEDS: ISOSORBIDE MONONITRATE (30MG) 30 MG TAB.SR.24H PO SCH (09:12)
[2018-10-28] MEDS: FUROSEMIDE 40 MG TABLET PO SCH (09:12)
[2018-10-28] MEDS: CLONIDINE HCL 0.1 MG TABLET PO SCH ×2 (09:15→17:00)
[2018-10-28] MEDS: IPRATROPIUM NEB FS 0.5 MG/2.5 ML AMPUL.NEB NEB SCH ×3 (09:30→20:10)
--- NOTE | 2018-10-28 09:58 | NUR ---
CLARIFIED WITH DR LOU FUROSEMIDE 40 MG IV DOSE.PT TOOK FUROSEMIDE [address] LOU STATED Addendum: 10/28/18 at 1000 by REJI LOZA RN DR LOU STATED THAT ITS OK TO ADMINISTER LASIX 40 MG IV IN ADDITION TO THE LASIX 40 MG PO PT GOT THIS MORNING.
[2018-10-28] MEDS: POTASSIUM CHLORIDE 20 MEQ TAB.PRT.SR PO SCH ×3 (10:01→12:51)
[2018-10-28] MEDS: FUROSEMIDE 40 MG/4 ML VIAL IV SCH ×4 (10:01→18:22)
[2018-10-28] MEDS ORDERED: CEFTRIAXONE 1 G in IV D5W 50 ML IV SCH (13:00)
--- NOTE | 2018-10-28 13:17 | NUR ---
PT/PT'S REFUSED IV ATB ROCEPHIN SAYING ITS MAKING THE PT SICK.EXPLAINED THE RISKS AND CONSEQUENCES BUT PT'S INSISTS TO REFUSE.
--- NOTE | 2018-10-28 13:19 | NUR ---
PT'S FINALLY AGREED TO HAVE IV ATB ROCEPHIN BUT FOR THE LAST TIME AND REFUSED OTHER ATB WELL.
[2018-10-28 14:49] VITALS: BP 99/53
[2018-10-28 15:59] VITALS: BP 104/58
[2018-10-28] MEDS: AZITHROMYCIN 500 MG in IV D5W 250 ML IV SCH (17:00)
--- NOTE | 2018-10-28 17:00 | NUR ---
PT REFUSED ZITHROMAX IV ATB SAYING IT'S MAKING HIM SICK INSPITE OF EXPLAINING ITS RISKS AND BENEFITS.
--- NOTE | 2018-10-28 19:20 | NUR ---
RN OPEN NOTES RECEIVED PATIENT AWAKE IN BED. A/OX3. NO SIGNS OF DISTRESS OR DISCOMFORT. BREATHING EVEN AND UNLABORED. IV ACCESS IN RAC, PATENT AND INTACT, NO SIGNS OF REDNESS OR INFILTRATION. BED IN LOW LOCKED POSITION WITH SIDE RAILS X2. CALL LIGHT WITHIN REACH. WILL CONTINUE TO MONITOR.
[2018-10-28 20:00] VITALS: BP 105/60
[2018-10-28] MEDS: DUTASTERIDE (0.5 MG) 0.5 MG CAPSULE PO SCH (21:03)
[2018-10-28] MEDS: HYDROCODONE/APAP 5/325MG 1 EACH TABLET PO PRN (23:09)
--- NOTE | 2018-10-28 23:09 | NUR ---
RN NOTES ADMINISTERED NORCO 5/325 ORDERED FOR L UPPER CHEST PAIN 07/07 AT PATIENT REQUEST. PER PT "MY PACEMAKER PAIN". VSS. WILL CONTINUE TO MONITOR.
[2018-10-29] MEDS: IPRATROPIUM NEB FS 0.5 MG/2.5 ML AMPUL.NEB NEB SCH ×2 (00:34→07:27)
--- NOTE | 2018-10-29 06:57 | NUR ---
RN CLOSING NOTES PATIENT AWAKE IN BED. A/OX3. NO SIGNS OF DISTRESS OR DISCOMFORT. BREATHING EVEN AND UNLABORED. ON 2LPM O2 VIA NC. IV ACCESS IN RAC, PATENT AND INTACT, NO SIGNS OF REDNESS OR INFILTRATION. ALL NEEDS MET. NO SIGNIFICANT CHANGES THROUGH THE NIGHT. BED IN LOW LOCKED POSITION WITH SIDE RAILS X2. CALL LIGHT WITHIN REACH. WILL ENDORSE TO AM SHIFT FOR JEAN PIERRE.
[2018-10-29 07:36] LABS: BASOPHILS # (AUTO) 0.1 /CMM (0.0-0.2); BASOPHILS % (AUTO) 0.9 % (0.0-2.0); EOSINOPHILS % (AUTO) 4.7 % (0.0-6.0); HEMATOCRIT 35 % (39-51); HEMOGLOBIN 11.4 g/dL (13.5-17.5); LYMPHOCYTES % (AUTO) 14.3 % (20.0-44.0); MEAN CORPUSCULAR HGB CONC 33 g/dl (31.0-36.0); MEAN CORPUSCULAR VOLUME 76 fL (80-96); MONOCYTES # (AUTO) 0.8 /CMM (0.1-1.30); MONOCYTES % (AUTO) 11.6 % (2.0-12.0); NEUTROPHILS # (AUTO) 4.9 /CMM (1.8-8.9); NEUTROPHILS % (AUTO) 68.5 % (43.0-81.0); PLATELET COUNT (AUTO) 267 /CMM (150-450); RED BLOOD CELL COUNT(AUTO) 4.58 MIL/uL (4.5-6.0); WHITE BLOOD COUNT (AUTO) 7.1 K/uL (4.3-11.0)
[2018-10-29 07:38] LABS: ALBUMIN 3.1 g/dL (3.4-5.0); BILIRUBIN,TOTAL 0.7 mg/dL (0.2-1.0); CALCIUM, SERUM 8.6 mg/dL (8.5-10.1); MAGNESIUM 2.2 mg/dL (1.8-2.4); PHOSPHORUS 3.8 mg/dL (2.5-4.9); POTASSIUM 3.9 mmol/L (3.5-5.1); TOTAL PROTEIN, SERUM 7.4 g/dL (6.4-8.2)
[2018-10-29 08:00] VITALS: BP 149/75
--- NOTE | 2018-10-29 08:00 | NUR ---
MS RN AM NOTES PATIENT AWAKE IN BED. A/OX3. NO SIGNS OF DISTRESS OR DISCOMFORT. BREATHING EVEN AND UNLABORED. ON 2LPM O2 VIA NC. IV ACCESS IN RAC, PATENT AND INTACT, NO SIGNS OF REDNESS OR INFILTRATION. NEEDS ATTENDED. AMBULATING ALONG THE HALLWAY WITH NO C/O DISTRESS.PT IS SO ANXIOUS TO GO HOME.BED IN LOW LOCKED POSITION WITH SIDE RAILS X2. CALL LIGHT WITHIN REACH.
[2018-10-29 08:50] VITALS: BP 149/75
[2018-10-29] MEDS: CARVEDILOL 6.25 MG TABLET PO SCH (08:50)
[2018-10-29] MEDS: CLONIDINE HCL 0.1 MG TABLET PO SCH (08:50)
[2018-10-29] MEDS: ASPIRIN 81 MG TAB.CHEW PO SCH (08:50)
[2018-10-29] MEDS: ISOSORBIDE MONONITRATE (30MG) 30 MG TAB.SR.24H PO SCH (08:50)
[2018-10-29] MEDS ORDERED: FUROSEMIDE 40 MG TABLET PO SCH (09:00)
--- NOTE | 2018-10-29 12:15 | NUR ---
DISCHARGED HOME WITH STABLE V/S.DENIES ANY PAIN OR DISTRESS.DISCHARGE INSTRUCTIONS GIVEN.ACCOMPANIED BY HIS .
== END 2018-10-29 12:20 | disposition home or self-care (01) | DRG 871 ==
LOC: ER 13:05 → TELE 16:15 → MED 10-28 10:01
PROVIDERS: ADMIT Nurse Practitioner Acute Care; ATTEND Nurse Practitioner Acute Care
DX: A41.9 Sepsis, unspecified organism (principal); I50.23 Acute on chronic systolic (congestive) heart failure; I13.0 Hypertensive heart and chronic kidney disease with heart failure and stage 1 through stage 4 chronic kidney disease, or unspecified chronic kidney disease; E87.2 Acidosis; N17.9 Acute kidney failure, unspecified; R65.20 Severe sepsis without septic shock; D72.829 Elevated white blood cell count, unspecified; N18.9 Chronic kidney disease, unspecified; E80.6 Other disorders of bilirubin metabolism; E87.5 Hyperkalemia; I25.10 Atherosclerotic heart disease of native coronary artery without angina pectoris; Z95.1 Presence of aortocoronary bypass graft; Z95.0 Presence of cardiac pacemaker; D50.9 Iron deficiency anemia, unspecified; I25.5 Ischemic cardiomyopathy; N40.0 Benign prostatic hyperplasia without lower urinary tract symptoms; Z87.891 Personal history of nicotine dependence
CPT/HCPCS: 36415; 71045-TC; 71046; 80048-TC; 80053-TC; 80061-TC; 80076-TC; 81000-TC; 82728-TC; 83540-TC; 83605-TC; 83735-TC; 83880; 84100-TC; 84443-TC; 84484-TC; 85025-TC; 85378-TC; 87040-TC; 87070-TC; 87081-TC; 87186-TC; 93307-TC; 93970-TC; 94799-TC; G0378; J0456; J0696; J1940; J7040; J7060

== ENCOUNTER 2018-12-25 13:07 | Emergency (ER) | payer MEDICARE, OTHER ==
[~2018-12-25] VITALS: Ht 165.1 cm; Wt 69.9 kg
[~2018-12-25 13:07] MED LIST changes: +DUTA0.5C15 PO; +FLUT1BLS6 INH; -TAMS-12 PO; -ZOLP5TAB8 PO
--- NOTE | 2018-12-25 13:18 | NUR ---
BIBRA FROM HOME C/O COUGH/CONGESTION X 3 DAYS, PT IS AAOX4, NOT IN RESPIRATORY DISTRESS, HOOKED TO MONITOR, KEPT RESTED AND COMFORTABL, WILL CONTINUE TO MONITOR, AWAITING ER MD FOR EVAL.
--- NOTE | 2018-12-25 13:29 | NUR ---
ANU COMPUTER CONSOLE OPERATOR AT BEDSIDE FOR EVAL.
--- NOTE | 2018-12-25 13:45 | NUR ---
IV LINE ESTABLISHED, BLOOD DRAWNED AND SENT TO LAB.
--- NOTE | 2018-12-25 13:49 | NUR ---
POLITICAL GEOGRAPHER AT BEDSIDE FOR XRAY.
[2018-12-25 13:54] LABS: BASOPHILS # (AUTO) 0.1 /CMM (0.0-0.2); BASOPHILS % (AUTO) 1.1 % (0.0-2.0); EOSINOPHILS % (AUTO) 4.2 % (0.0-6.0); HEMATOCRIT 36 % (39-51); HEMOGLOBIN 11.9 g/dL (13.5-17.5); LYMPHOCYTES # (AUTO) 0.9 /CMM (0.8-4.8); LYMPHOCYTES % (AUTO) 13.1 % (20.0-44.0); MEAN CORPUSCULAR HGB CONC 33 g/dl (31.0-36.0); MEAN CORPUSCULAR VOLUME 79 fL (80-96); MONOCYTES # (AUTO) 0.6 /CMM (0.1-1.30); MONOCYTES % (AUTO) 9.5 % (2.0-12.0); NEUTROPHILS # (AUTO) 4.8 /CMM (1.8-8.9); NEUTROPHILS % (AUTO) 72.1 % (43.0-81.0); PLATELET COUNT (AUTO) 221 /CMM (150-450); RED BLOOD CELL COUNT(AUTO) 4.55 MIL/uL (4.5-6.0); WHITE BLOOD COUNT (AUTO) 6.7 K/uL (4.3-11.0)
[2018-12-25 14:06] LABS: CALCIUM, SERUM 8.4 mg/dL (8.5-10.1); CARBON DIOXIDE 30 mmol/L (21-32); CHLORIDE 102 mmol/L (98-107); CREATININE 2.1 mg/dL (0.6-1.3); GLUCOSE 133 mg/dL (74-106); POTASSIUM 3.5 mmol/L (3.5-5.1); SODIUM SERUM 142 mmol/L (136-145); UREA NITROGEN, BLOOD 24 mg/dL (7-18)
--- NOTE | 2018-12-25 14:16 | NUR ---
REQUESTED TELE BED
--- NOTE | 2018-12-25 14:44 | NUR ---
NO BED YET PER NURSING SUP
[2018-12-25] MEDS ORDERED: FUROSEMIDE 40 MG/4 ML VIAL ONE (15:40)
[2018-12-25 15:44] VITALS: BP 118/72
[2018-12-25] MEDS ORDERED: FUROSEMIDE 40 MG/4 ML VIAL IV ONE (16:00)
--- NOTE | 2018-12-25 16:02 | NUR ---
IV removed. Catheter intact and site benign. Pressure and 4x4 applied to site. No bleeding noted. Patient discharged to home in stable condition. Written and verbal after care instructions given. Patient verbalizes understanding of instruction.
== END 2018-12-25 16:03 | disposition home or self-care (01) ==
LOC: ER 13:12
DX: J44.1 Chronic obstructive pulmonary disease with (acute) exacerbation (principal); I12.9 Hypertensive chronic kidney disease with stage 1 through stage 4 chronic kidney disease, or unspecified chronic kidney disease; N18.9 Chronic kidney disease, unspecified; I25.10 Atherosclerotic heart disease of native coronary artery without angina pectoris; Z95.0 Presence of cardiac pacemaker; Z95.1 Presence of aortocoronary bypass graft; Z98.890 Other specified postprocedural states; Z79.82 Long term (current) use of aspirin
CPT/HCPCS: 36415; 71045; 80048; 83880; 84484; 85025; 93005; 96374; 99284; J1940

== ENCOUNTER 2018-12-30 16:42 | Emergency (ER) | payer MEDICARE, OTHER ==
[~2018-12-30] VITALS: Ht 170.2 cm; Wt 69.4 kg
--- NOTE | 2018-12-30 17:10 | NUR ---
[id number] FRM HOME C/O CHEST PAIN, SOB X TODAY. COUGH X 10 DAYS. PATIENT A/OX4, BREATHING EVEN AND UNLABORED, NO SOB NOTED, OBSERVED WITH PRODUCTIVE COUGH. DAUGHTER AT BEDSIDE, CHANGED INTO GOWN, ATTACHED TO THE STUDENT SERVICES REP. KEPT COMFORTABLE.
[2018-12-30 17:50] LABS: BASOPHILS # (AUTO) 0.1 /CMM (0.0-0.2); BASOPHILS % (AUTO) 0.9 % (0.0-2.0); EOSINOPHILS % (AUTO) 4.8 % (0.0-6.0); HEMATOCRIT 41 % (39-51); HEMOGLOBIN 13.5 g/dL (13.5-17.5); LYMPHOCYTES # (AUTO) 1.1 /CMM (0.8-4.8); LYMPHOCYTES % (AUTO) 15.8 % (20.0-44.0); MEAN CORPUSCULAR HGB CONC 33 g/dl (31.0-36.0); MEAN CORPUSCULAR VOLUME 79 fL (80-96); MONOCYTES # (AUTO) 0.8 /CMM (0.1-1.30); MONOCYTES % (AUTO) 10.7 % (2.0-12.0); NEUTROPHILS # (AUTO) 4.9 /CMM (1.8-8.9); NEUTROPHILS % (AUTO) 67.8 % (43.0-81.0); PLATELET COUNT (AUTO) 248 /CMM (150-450); WHITE BLOOD COUNT (AUTO) 7.2 K/uL (4.3-11.0)
[2018-12-30 17:54] LABS: CALCIUM, SERUM 8.8 mg/dL (8.5-10.1); CARBON DIOXIDE 30 mmol/L (21-32); CHLORIDE 103 mmol/L (98-107); CREATININE 1.9 mg/dL (0.6-1.3); GLUCOSE 111 mg/dL (74-106); POTASSIUM 3.9 mmol/L (3.5-5.1); SODIUM SERUM 140 mmol/L (136-145); UREA NITROGEN, BLOOD 25 mg/dL (7-18)
[2018-12-30] MEDS ORDERED: FUROSEMIDE 40 MG/4 ML VIAL IV ONE (18:30)
--- NOTE | 2018-12-30 18:32 | NUR ---
PATIENT C/O SOB. 1L OF O2 GIVEN.
[2018-12-30] MEDS ORDERED: FUROSEMIDE 40 MG/4 ML VIAL ONE (18:35)
--- NOTE | 2018-12-30 19:11 | NUR ---
Patient ambulatory with a steady gait. O2 sat 98% in room air. IV removed. Catheter intact and site benign. Pressure and 4x4 applied to site. No bleeding noted.Patient discharged to home in stable condition. Written and verbal after care instructions given. Patient verbalizes understanding of instruction.
[2018-12-30 19:14] VITALS: BP 139/76
== END 2018-12-30 19:14 | disposition home or self-care (01) ==
LOC: ER 16:43
DX: I11.0 Hypertensive heart disease with heart failure (principal); R06.00 Dyspnea, unspecified; I50.9 Heart failure, unspecified; J44.9 Chronic obstructive pulmonary disease, unspecified; Z95.1 Presence of aortocoronary bypass graft; Z95.0 Presence of cardiac pacemaker; Z98.890 Other specified postprocedural states; Z79.82 Long term (current) use of aspirin
CPT/HCPCS: 36415; 71045; 80048; 83880; 84484; 85025; 93005 ×3; 96374; 99284; J1940